=== PATIENT | female | born 1990 | race Caucasian/White ===

== ENCOUNTER 2020-10-01 06:49 | Inpatient (IN) | payer BC ==
[~2020-10-01 06:49] MED LIST: Bupivacaine 0.25% 10 ML SDV ONE
[2020-10-01] MEDS ORDERED: Lidocaine 1% 50 ML MDV INJECT PRN (07:01)
[2020-10-01] MEDS ORDERED: Sodium Chloride 0.9% 10 ML Syringe FLUSH PRN (07:01)
[2020-10-01] MEDS ORDERED: Nalbuphine 10 MG/1 ML Vial IVPUSH PRN (07:01)
[2020-10-01] MEDS ORDERED: Oxytocin/Lactated Ringers 10 UNIT/1,000 ML BAG IV SCH ×2 (07:15)
--- NOTE | 2020-10-01 08:18 | PCM.LDHP ---
L&D History of Present Illness - General Date of Service: 10/01/20 Admit Problem/Dx: Patient Status Order with Admit Dx/Problem 10/01/20 07:01 Patient Status [ADT] Routine Admission Diagnosis/Problem Admission Diagnosis/Problem Source of Information: Patient History Limitations: Reports: No Limitations - History of Present Illness Introduction:: 30 year old at 39w by LMP c/w second trimester ultrasound here for induction of labor. PNC with myself without complications starting at 10 weeks. - Related Data Allergies/Adverse Reactions: Allergies Allergy/AdvReac Type Severity Reaction Status Date / Time Penicillins AdvReac Stomach Verified 09/24/20 11:53 Upset Home Medications: Home Meds Vits #93/Iron Fum/FA [ Formula Tablet] 1 each PO DAILY 09/24/20 [History] Past Medical History - Past Health History Medical/Surgical History: Denies Medical/Surgical History H&P Review of Systems - Review of Systems: Review Of Systems: See Below General: Reports: No Symptoms HEENT: Reports: No Symptoms Pulmonary: Reports: No Symptoms Cardiovascular: Reports: No Symptoms Gastrointestinal: Reports: No Symptoms Genitourinary: Reports: No Symptoms Musculoskeletal: Reports: No Symptoms Skin: Reports: No Symptoms Psychiatric: Reports: No Symptoms Neurological: Reports: No Symptoms Hematologic/Lymphatic: Reports: No Symptoms Immunologic: Reports: No Symptoms L&D Exam - Exam Exam: See Below - Vital Signs Weight: 68.946 kg - OB Specific Contraction Intensity: Moderate - Domingo Score Domingo Score Cervix Position: Posterior Domingo Score Consistency: Soft Domingo Score Effacement: 51-70% Domingo Score Dilation: 3-4 cm Domingo Score 's Station: -1 ,0 Domingo Score Total: 8 - Exam General: Alert, Oriented HEENT: PERRLA, Conjunctiva Clear, EACs Clear, EOMI, Hearing Intact, Mucosa Moist & [place], Nares Patent, Normal Nasal Septum, Posterior Pharynx Clear, TMs Clear Neck: Supple, Trachea Midline Lungs: Clear to Auscultation, Normal Respiratory Effort GI/Abdominal Exam: Normal Bowel Sounds, Soft, Non-Tender, No Organomegaly Rectal Exam: Normal Exam Genitourinary: Normal external exam Back Exam: Normal Inspection Extremities: Normal Inspection, Normal Range of Motion, Non-Tender, No Pedal Edema, Normal Capillary Refill Skin: Warm Neurological: Cranial Nerves Intact, Reflexes Equal Bilateral Psychiatric: Alert, Normal Affect, Normal Mood - Patient Data Lab Results Last 24 hrs: Laboratory Results - last 24 hr 10/01/20 Range/Units 07:35 WBC 10.74 H (3.98-10.04) K/mm3 RBC 4.44 (3.98-5.22) M/mm3 Hgb 13.5 (11.2-15.7) gm/dl Hct 39.1 (34.1-44.9) % MCV 88.1 (79.4-94.8) fl MCH 30.4 (25.6-32.2) pg MCHC 34.5 (32.2-35.5) g/dl RDW Std Deviation 41.2 (36.4-46.3) fL Plt Count 200 (182-369) K/mm3 MPV 9.9 (9.4-12.3) fl Neut % (Auto) 71.1 (34.0-71.1) % Lymph % (Auto) 19.7 (19.3-51.7) % [place] % (Auto) 7.8 (4.7-12.5) % Eos % (Auto) 0.5 L (0.7-5.8) Baso % (Auto) 0.2 (0.1-1.2) % Neut # (Auto) 7.64 H (1.56-6.13) K/mm3 Lymph # (Auto) 2.12 (1.18-3.74) K/mm3 [place] # (Auto) 0.84 H (0.24-0.36) K/mm3 Eos # (Auto) 0.05 (0.04-0.36) K/mm3 Baso # (Auto) 0.02 (0.01-0.08) K/mm3 Result Diagrams: 10/01/20 07:35 Problem List Initiated/Reviewed/Updated: Yes Orders Last 24hrs: Active Orders 24 hr Category Date Time Status Patient Status [ADT] Routine ADT 10/01/20 07:01 Active Activity as Tolerated [RC] PFP Care 10/01/20 07:01 Active Communication Order [RC] ASDIRECTED Care 10/01/20 07:01 Active Heart Tones [RC] ASDIRECTED Care 10/01/20 07:01 Active Non Stress Test [RC] PER UNIT ROUTINE Care 10/01/20 07:01 Active Notify Provider [RC] PFP Care 10/01/20 07:01 Active Notify Provider [RC] PRN Care 10/01/20 07:01 Active Peripheral IV Care [RC] . DIRECTED Care 10/01/20 07:01 Active Urinary Catheter Assessment [RC] ASDIRECTED Care 10/01/20 07:01 Active Vital Signs [RC] PER UNIT ROUTINE Care 10/01/20 07:01 Active Regular Diet [DIET] Diet 10/01/20 Breakfast Active BLOOD BANK HOLD SPECIMEN [BBK] Routine Lab 10/01/20 07:01 Ordered CORONAVIRUS COVID-19 GERMAN [MOLEC] Stat Lab 10/01/20 07:30 Received RAPID PLASMA REAGIN,RPR [CHEM] Routine Lab 10/01/20 07:35 Received Lactated Ringers [Ringers, Lactated] 1,000 ml Med 10/01/20 07:15 Active IV ASDIRECTED Lidocaine 1% [Xylocaine 1%] Med 10/01/20 07:01 Active 50 ml INJECT ONETIME PRN Nalbuphine [Nubain] Med 10/01/20 07:01 Active 10 mg IVPUSH Q2H PRN Oxytocin/Lactated Ringers [Pitocin in LR 10 Units/1,000 Med 10/01/20 07:15 Active ML] 10 unit in 1,000 ml IV .CONTINUOUS Oxytocin/Lactated Ringers [Pitocin in LR 10 Units/1,000 Med 10/01/20 07:15 Active ML] 10 unit in 1,000 ml IV TITRATE Sodium Chloride 0.9% [Saline Flush] Med 10/01/20 07:01 Active 10 ml FLUSH ASDIRECTED PRN Electronic Heart Tones Ext w TOCO [WOMSER] Oth 10/01/20 07:01 Ordered Routine Electronic Heart Tones Internal [WOMSER] Per Unit Oth 10/01/20 07:01 Ordered Routine Peripheral IV Insertion Adult [OM.PC] Routine Oth 10/01/20 07:01 Ordered Resuscitation Status Routine Resus Stat 10/01/20 07:01 Ordered Medication Orders Oxytocin/Lactated Ringer's (Pitocin In Lr 10 Units/1,000 Ml) 10 unit in 1,000 mls @ 12 mls/hr IV TITRATE LUÍS; Protocol Oxytocin/Lactated Ringer's (Pitocin In Lr 10 Units/1,000 Ml) 10 unit in 1,000 mls @ 500 mls/hr IV .CONTINUOUS LUÍS Lactated Ringer's (Ringers, Lactated) 1,000 mls @ 100 mls/hr IV ASDIRECTED LUÍS Lidocaine HCl (Xylocaine 1%) 50 ml INJECT ONETIME PRN PRN Reason: Breakthrough Pain Nalbuphine HCl (Nubain) 10 mg IVPUSH Q2H PRN PRN Reason: Pain Sodium Chloride (Saline Flush) 10 ml FLUSH ASDIRECTED PRN PRN Reason: Keep Vein Open Assessment/Plan Comment:: 30 year old here for induction of labor. O positive, rubella immune, gbs negative. AROM clear fluid. Pitocin if needed in an hour or so. Anticipate unless otherwise indicated.
--- NOTE | 2020-10-01 09:07 | PCM.PREANE ---
Preanesthetic Assessment - Procedure Proposed Procedure: VLADIMIR- PATIENT IS STILL DECIDING IF SHE WANTS ONE - Anesthesia/Transfusion/Family Hx Anesthesia History: Prior Anesthesia Without Reaction Family History of Anesthesia Reaction: No Transfusion History: No Prior Transfusion(s) - Review of Systems General: No Symptoms Pulmonary: No Symptoms Cardiovascular: No Symptoms Gastrointestinal: No Symptoms Neurological: No Symptoms Other: Reports: None - Physical Assessment Vital Signs: Last Vital Signs Temp 97.6 F 10/01/20 07:01 Pulse 74 10/01/20 08:04 Resp 16 10/01/20 07:01 BP 127/79 10/01/20 07:30 Pulse Ox Height: 5 ft 5 in Weight: 68.946 kg ASA Class: 2 Mental Status: Alert & Oriented x3 Airway Class: Mallampati = 1 Dentition: Reports: Normal Dentition Thyro-Mental Finger Breadths: 3 Mouth Opening Finger Breadths: 3 ROM/Head Extension: Full Lungs: Clear to Auscultation, Normal Respiratory Effort Cardiovascular: Regular Rate, Regular Rhythm, No Murmurs - Lab Values: Laboratory Last Values WBC 10.74 K/mm3 (3.98-10.04) H 10/01/20 07:35 RBC 4.44 M/mm3 (3.98-5.22) 10/01/20 07:35 Hgb 13.5 gm/dl (11.2-15.7) 10/01/20 07:35 Hct 39.1 % (34.1-44.9) 10/01/20 07:35 MCV 88.1 fl (79.4-94.8) 10/01/20 07:35 MCH 30.4 pg (25.6-32.2) 10/01/20 07:35 MCHC 34.5 g/dl (32.2-35.5) 10/01/20 07:35 RDW Std Deviation 41.2 fL (36.4-46.3) 10/01/20 07:35 Plt Count 200 K/mm3 (182-369) 10/01/20 07:35 MPV 9.9 fl (9.4-12.3) 10/01/20 07:35 Neut % (Auto) 71.1 % (34.0-71.1) 10/01/20 07:35 Lymph % (Auto) 19.7 % (19.3-51.7) 10/01/20 07:35 [place] % (Auto) 7.8 % (4.7-12.5) 10/01/20 07:35 Eos % (Auto) 0.5 (0.7-5.8) L 10/01/20 07:35 Baso % (Auto) 0.2 % (0.1-1.2) 10/01/20 07:35 Neut # (Auto) 7.64 K/mm3 (1.56-6.13) H 10/01/20 07:35 Lymph # (Auto) 2.12 K/mm3 (1.18-3.74) 10/01/20 07:35 [place] # (Auto) 0.84 K/mm3 (0.24-0.36) H 10/01/20 07:35 Eos # (Auto) 0.05 K/mm3 (0.04-0.36) 10/01/20 07:35 Baso # (Auto) 0.02 K/mm3 (0.01-0.08) 10/01/20 07:35 SARS-CoV-2 RNA (GERMAN) Negative (NEGATIVE) 10/01/20 07:30 - Allergies Allergies/Adverse Reactions: Allergies Allergy/AdvReac Type Severity Reaction Status Date / Time Penicillins AdvReac Stomach Verified 09/24/20 11:53 Upset - Blood Blood Available: No - Acknowledgements Anesthesia Type Planned: Epidural Pt an Appropriate Candidate for the Planned Anesthesia: Yes Alternatives and Risks of Anesthesia Discussed w Pt/Guardian: Yes Pt/Guardian Understands and Agrees with Anesthesia Plan: Yes PreAnesthesia Questionnaire - Past Health History Medical/Surgical History: Denies Medical/Surgical History Cardiovascular History: Reports: None Respiratory History: Reports: None Gastrointestinal History: Reports: GERD (rare with preg) : 1 Para: 0 Oncologic (Cancer) History: Reports: None - Past Surgical History HEENT Surgical History: Reports: Oral Surgery Musculoskeletal Surgical History: Reports: Arthroscopic Knee (acl) - SUBSTANCE USE Tobacco Use Status *Q: Never Tobacco User Tobacco Use Within Last Twelve Months: No Second Hand Smoke Exposure: No Days Per Week of Alcohol Use: 0 Recreational Drug Use History: No - HOME MEDS Home Medications: Home Meds Vits #93/Iron Fum/FA [ Formula Tablet] 1 each PO DAILY 02/02/21 [History] - CURRENT (IN HOUSE) MEDS Current Meds: Current Medications Oxytocin/Lactated Ringer's (Pitocin In Lr 10 Units/1,000 Ml) 10 unit in 1,000 mls @ 12 mls/hr IV TITRATE LUÍS; Protocol Oxytocin/Lactated Ringer's (Pitocin In Lr 10 Units/1,000 Ml) 10 unit in 1,000 mls @ 500 mls/hr IV .CONTINUOUS LUÍS Lactated Ringer's (Ringers, Lactated) 1,000 mls @ 100 mls/hr IV ASDIRECTED LUÍS Lidocaine HCl (Xylocaine 1%) 50 ml INJECT ONETIME PRN PRN Reason: Breakthrough Pain Nalbuphine HCl (Nubain) 10 mg IVPUSH Q2H PRN PRN Reason: Pain Sodium Chloride (Saline Flush) 10 ml FLUSH ASDIRECTED PRN PRN Reason: Keep Vein Open
[2020-10-01] MEDS: Lactated Ringers 1,000 ML IV SCH ×2 (14:45→15:48)
[2020-10-01] MEDS ORDERED: fentaNYL 100 MCG/2 ML SDV EPIDUR PRN (15:04)
[2020-10-01] MEDS ORDERED: ePHEDrine 50 MG/ML SDV IVPUSH PRN (15:04)
[2020-10-01] MEDS ORDERED: Bupivacaine/fentaNYL/NS 100 ML Bag EPIDUR PRN (15:04)
[2020-10-01] MEDS ORDERED: diphenhydrAMINE 50 MG/ML SDV IVPUSH PRN (15:04)
--- NOTE | 2020-10-01 16:27 | PCM.PNLD ---
Labor Progress Note - VS & Meds Vital Signs: Last Vital Signs Temp 36.4 C 10/01/20 07:01 Pulse 74 10/01/20 08:04 Resp 16 10/01/20 07:01 BP 127/79 10/01/20 07:30 Pulse Ox Active Medications: Current Medications Diphenhydramine HCl (Benadryl) 25 mg IVPUSH Q6H PRN PRN Reason: pruritis Ephedrine Sulfate (Ephedrine Sulfate) 5 mg IVPUSH ASDIRECTED PRN PRN Reason: Hypotension Fentanyl (Sublimaze) 100 mcg EPIDUR Q3H PRN PRN Reason: Pain Last Admin: 10/01/20 15:13 Dose: 100 mcg Documented by: Fentanyl/Bupivacaine HCl (Fentanyl/Bupivacaine/Ns 2 Mcg-0.125% 100 Ml) 100 ml EPIDUR ASDIRECTED PRN PRN Reason: Pain Last Admin: 10/01/20 15:13 Dose: 100 ml Documented by: Oxytocin/Lactated Ringer's (Pitocin In Lr 10 Units/1,000 Ml) 10 unit in 1,000 mls @ 12 mls/hr IV TITRATE LUÍS; Protocol Oxytocin/Lactated Ringer's (Pitocin In Lr 10 Units/1,000 Ml) 10 unit in 1,000 mls @ 500 mls/hr IV .CONTINUOUS LUÍS Lactated Ringer's (Ringers, Lactated) 1,000 mls @ 100 mls/hr IV ASDIRECTED LUÍS Last Admin: 10/01/20 14:45 Dose: 999 mls/hr Documented by: Lidocaine HCl (Xylocaine 1%) 50 ml INJECT ONETIME PRN PRN Reason: Breakthrough Pain Nalbuphine HCl (Nubain) 10 mg IVPUSH Q2H PRN PRN Reason: Pain Sodium Chloride (Saline Flush) 10 ml FLUSH ASDIRECTED PRN PRN Reason: Keep Vein Open - Uterine Contractions Contraction Intensity: Moderate - Monitoring Accelerations: Present, 15x15 - Vaginal Exam Dilation (cm): 5 Station: 0 - Labor Progress (Free Text) Labor Progress: Progressing well. No complaints.
--- NOTE | 2020-10-01 16:28 | PCM.SN.2 ---
- Free Text/Narrative Note: Progressing well Epidural in 80/-2
--- NOTE | 2020-10-01 23:38 | PCM.SN.2 ---
- Free Text/Narrative Note: Stage I - Patient presented for induction of labor. AROM clear fluid. Painful contractions began shortly after. Eventually requested epidural for anesthesia. Pitocin then initiated. Progressed to complete with overall reassuring heart tones. Stage II - of viable male, weight 3200g, APGARS 8/9 at 2306. During pushing fetus began having deep variable decelerations to the 70-80. Returned to baseline. Given patient had been pushing over an hour and delivery was not eminent consent for vacuum obtained. Kiwi vacuum applied with fetus at +4/5 station. Over 3 contractions with vacuum use and contractions in between with only maternal effort delivery was achieved without difficulty. After delivery of head body and shoulders followed atraumatically. Positive cry. Placed on maternal abdomen. Pitocin initiated. Cord clamped and cut at one minute of life. Cord blood collected. Stage III - Spontaneous delivery of intact placenta. 3v cord. 2nd degree laceration and bilateral labial lacerations repaired with 3-0 vicryl. EBL 300.
[2020-10-02] MEDS: Benzocaine/Menthol 20%-0.5% Spray 56 GM Canister TOP PRN (00:57)
[2020-10-02] MEDS: Witch Hazel Medicated Pads 40/Jar TOP PRN (00:57)
[2020-10-02] MEDS ORDERED: Ammonia Inhalant Amp ONE (02:01)
[2020-10-02] MEDS: Ibuprofen 600 MG Tab PO PRN ×2 (05:57→21:44)
--- NOTE | 2020-10-02 07:57 | PCM48HPAN ---
Post Anesthesia Note - EVALUATION WITHIN 48HRS OF ANESTHETIC Vital Signs in Normal Range: Yes Patient Participated in Evaluation: Yes Respiratory Function Stable: Yes Airway Patent: Yes Cardiovascular Function Stable: Yes Hydration Status Stable: Yes Pain Control Satisfactory: Yes Nausea and Vomiting Control Satisfactory: Yes Mental Status Recovered: Yes Vital Signs: Last Vital Signs Temp 36.7 C 10/02/20 02:07 Pulse 69 10/02/20 02:07 Resp 14 10/02/20 02:07 BP 110/67 10/02/20 02:07 Pulse Ox 96 10/02/20 02:07 - COMMENTS/OBSERVATIONS Free Text/Narrative:: no anesthesia complications noted
[2020-10-02] MEDS: Docusate Sodium 100 MG Cap PO PRN ×2 (09:20→21:44)
[2020-10-02] MEDS: Acetaminophen 325 MG Tab PO PRN ×2 (09:21→18:00)
--- NOTE | 2020-10-02 10:33 | PCM.SN.2 ---
- Free Text/Narrative Note: Post Progress Note PPD #1 Subjective: Doing well overall. Ambulating minimally and had some difficulty with ongoing numbness in her legs following epidural for anesthesia. She feels like the numbness and weakness in her legs is improving this morning. Lochia minimal overnight. Voiding without difficulty. Tolerating regular diet without nausea or vomiting. Pain controlled with oral medications. Breast-feeding with some difficulty and is planning to work with the provider contracting consultant in the office today. Objective: Vitals: Vital Signs - 12 hr 10/01/20 10/02/20 10/02/20 23:30 00:01 00:30 Temperature Pulse, 82 87 76 Peripheral Respiratory Rate Blood Pressure 104/57 L 82/69 L 103/57 L O2 Sat by Pulse Oximetry 10/02/20 10/02/20 10/02/20 01:00 01:30 02:07 Temperature 36.7 C Pulse, 90 75 69 Peripheral Respiratory 14 Rate Blood Pressure 103/57 L 96/49 L 110/67 O2 Sat by Pulse 96 Oximetry Physical Exam General: Alert and oriented, no acute distress Lungs: Clear to auscultation bilaterally Heart: Regular rate and rhythm Abdomen: Soft, minimal appropriate tenderness, non-distended, fundus midline, nontender, and 1 fingerbreadth below the umbilicus Extremities: No edema Laboratory Results - last 24 hr 10/01/20 10/02/20 Range/Units 07:35 04:48 RPR Non-reactive (NONREACTIVE) Blood Type O NEGATIVE Gel Antibody Screen Positive Screen 1 ros/5 flds - neg RhIG Candidate? Yes Rhogam Indicated Yes, baby rh pos H ASSESSMENT: 30-year-old female -0-0-1 s/p vacuum extractor vaginal delivery PPD #1 complicated by Rh- status and with Rh+ blood type PLAN: Doing well Breast-feeding with minimal difficulty. Assist as needed Lochia minimal. Continue to monitor for appropriate lochia. Continue routine care Mom with O- blood type and infant with with O+ blood type. Patient to receive RhoGam prior to discharge. Anticipate discharge home tomorrow due to late timing of delivery at approximately 2300 hrs. on 10/01/2020 Kanu Carrizales MD 10:32 AM 10/02/2020
[2020-10-03] MEDS: Ibuprofen 600 MG Tab PO PRN (08:28)
[2020-10-03] MEDS: Docusate Sodium 100 MG Cap PO PRN (08:28)
--- NOTE | 2020-10-03 08:38 | PCM.SN.2 ---
- Free Text/Narrative Note: Post Progress Note PPD #2 Subjective: Doing well overall. Ambulating without difficulty throughout the day. Lochia minimal and decreasing since yesterday. Reports that she is only passing small clots when she is breast-feeding . Voiding without difficulty. Reports that she is passing flatus but has not had a bowel movement. She feels like she does have some rectal pressure like she has to have a bowel movement. She has been using Colace for stool softeners. Tolerating regular diet without nausea or vomiting. Pain controlled with oral medications. Continues to be breast- feeding with some difficulty and is planning to work with the it infrastructure consultant in the office today. Objective: Vitals: Vital Signs - 24 hr 10/02/20 10/02/20 10/03/20 15:00 20:46 02:59 Temperature 36.6 C 36.6 C 36.3 C Pulse, 77 78 63 Peripheral Respiratory 15 16 16 Rate Blood Pressure 96/65 107/59 L 91/70 O2 Sat by Pulse 97 100 99 Oximetry Physical Exam General: Alert and oriented, no acute distress Lungs: Clear to auscultation bilaterally Heart: Regular rate and rhythm Abdomen: Soft, minimal appropriate tenderness, non-distended, fundus midline, nontender, and 2 fingerbreadths below the umbilicus Extremities: No edema, no calf tenderness bilaterally Laboratory Results - last 24 hr 10/02/20 Range/Units 04:48 Blood Type O NEGATIVE Gel Antibody Screen Positive Screen 1 ros/5 flds - neg RhIG Candidate? Yes Rhogam Indicated Yes, baby rh pos H ASSESSMENT: 30-year-old female -0-0-1 s/p vacuum extractor vaginal delivery PPD #2 complicated by Rh- status and with Rh+ blood type PLAN: Doing well Breast-feeding with minimal difficulty. Assist as needed Lochia minimal. Continue to monitor for appropriate lochia. Continue routine care Mom with O- blood type and with with O+ blood type. Patient given RhoGam on PPD #1 Discharge home today Kanu Carrizales MD 8:35 AM 10/03/2020
[2020-10-03] MEDS: Witch Hazel Medicated Pads 40/Jar TOP PRN (08:41)
[2020-10-03] MEDS: Benzocaine/Menthol 20%-0.5% Spray 56 GM Canister TOP PRN (08:41)
--- NOTE | 2020-10-03 08:59 | PCM.DCSUM1 ---
Discharge Summary - Hospital Course Free Text/Narrative:: Stage I - Patient presented for induction of labor. AROM clear fluid. Painful contractions began shortly after. Eventually requested epidural for anesthesia. Pitocin then initiated. Progressed to complete with overall reassuring heart tones. Stage II - of viable male, weight 3200g, APGARS 8/9 at 2306. During pushing fetus began having deep variable decelerations to the 70-80. Returned to baseline. Given patient had been pushing over an hour and delivery was not eminent consent for vacuum obtained. Kiwi vacuum applied with fetus at +4/5 station. Over 3 contractions with vacuum use and contractions in between with only maternal effort delivery was achieved without difficulty. After delivery of head body and shoulders followed atraumatically. Positive cry. Placed on maternal abdomen. Pitocin initiated. Cord clamped and cut at one minute of life. Cord blood collected. Stage III - Spontaneous delivery of intact placenta. 3v cord. 2nd degree laceration and bilateral labial lacerations repaired with 3-0 vicryl. EBL 300. Diagnosis: Stroke: No - Discharge Data Discharge Date: 10/03/20 Discharge Disposition: Home, Self-Care 01 Condition: Good - Referral to Home Health Primary Care Physician: Beverley Cook MD - Discharge Diagnosis/Problem(s) (1) 39 weeks gestation of SNOMED Code(s): 41129854 ICD Code: Z3A.39 - 39 WEEKS GESTATION OF Status: Acute Current Visit: Yes (2) Rh negative status during SNOMED Code(s): 391625854 ICD Code: O26.899 - OTH RELATED CONDITIONS, UNSPECIFIED TRIMESTER; Z67.91 - UNSPECIFIED BLOOD TYPE, RH NEGATIVE Status: Acute Current Visit: Yes (3) Vaginal delivery SNOMED Code(s): 464978057 ICD Code: O80 - ENCOUNTER FOR FULL-TERM UNCOMPLICATED DELIVERY Status: Acute Current Visit: Yes (4) Second degree perineal laceration during delivery SNOMED Code(s): 6841220 ICD Code: O70.1 - SECOND DEGREE PERINEAL LACERATION DURING DELIVERY Status: Acute Current Visit: Yes (5) Vacuum extractor delivery, delivered SNOMED Code(s): 482739097 ICD Code: O66.5 - ATTEMPTED APPLICATION OF VACUUM EXTRACTOR AND FORCEPS Status: Acute Current Visit: Yes - Patient Summary/Data Complications: None Consults: None Hospital Course: Ela Jara was admitted for elective induction of labor. On admission her cervix was dilated to 3-4 cm. She was GBS negative. She had artificial rupture of membranes with clear fluid. She was given an epidural for anesthesia. She was given pitocin for augmentation. She progressed to complete and began pushing. On 10/01/2020 she had a vacuum-assisted vaginal delivery of a live male at 23:06. Apgars of 8 and 9. Weight of 3200 g. Her course was uneventful. Her pain was well controlled and she had minimal lochia. She was ambulating, tolerating a regular diet and voiding normally. She was breast- feeding with minimal difficulty. She was afebrile and her hematocrit was 39.1 on admission. She desired to be discharged home on the morning of PPD #2. Her blood type is O- and infant had O+ blood type. She received RhoGam on PPD #1. - Patient Instructions Diet: Regular Diet as Tolerated Activity: Apply Ice, As Tolerated, No Strenuous Activities Activity, Other: Nothing in the vagina for 6 weeks Driving: May Drive Today Showering/Bathing: May Shower Notify Provider of: Fever, Increased Pain, Swelling and Redness, Drainage, Nausea and/or Vomiting Other/Special Instructions: Please contact your physician's office if you have heavy vaginal bleeding enough to soak a pad in less than an hour for several hours. Monitor for any signs of an infection in the breasts with severe pain or redness of the breast. - Discharge Plan *PRESCRIPTION DRUG MONITORING PROGRAM REVIEWED*: No *COPY OF PRESCRIPTION DRUG MONITORING REPORT IN PATIENT SOHAIL: No Home Medications: Home Meds Vits #93/Iron Fum/FA [ Formula Tablet] 1 each PO DAILY 09/24/20 [History] Acetaminophen [Tylenol] 650 mg PO Q4H PRN tablet 10/03/20 [Rx] Benzocaine/Menthol [Dermoplast Pain Relief Neches] 1 spray TOP ASDIRECTED PRN canister 10/03/20 [Rx] Docusate Sodium [Colace] 100 mg PO BID PRN cap 10/03/20 [Rx] Ibuprofen [Motrin] 600 mg PO Q6H PRN tablet 10/03/20 [Rx] malissa López [Tucks] 1 pad TOP ASDIRECTED PRN pad 10/03/20 [Rx] Patient Handouts: Care of a Perineal Tear, Care After Vaginal Delivery Referrals: Beverley Cook MD [Primary Care Provider] - (Follow-up for routine visit in 2 weeks or earlier as needed.) - Discharge Summary/Plan Comment DC Time >30 min.: No - Patient Data Vitals - Most Recent: Last Vital Signs Temp 36.3 C 10/03/20 02:59 Pulse 63 10/03/20 02:59 Resp 16 10/03/20 02:59 BP 91/70 10/03/20 02:59 Pulse Ox 99 10/03/20 02:59 Weight - Most Recent: 68.946 kg I&O - Last 24 hours: Intake & Output 10/02/20 10/03/20 10/03/20 22:59 06:59 14:59 Intake Total 302 Balance 302 Lab Results - Last 24 hrs: Laboratory Results - last 24 hr 10/02/20 Range/Units 04:48 Blood Type O NEGATIVE Gel Antibody Screen Positive Screen 1 ros/5 flds - neg RhIG Candidate? Yes Rhogam Indicated Yes, baby rh pos H Med Orders - Current: Current Medications Acetaminophen (Tylenol) 650 mg PO Q4H PRN PRN Reason: mild pain or fever Last Admin: 10/02/20 18:00 Dose: 650 mg Documented by: Benzocaine/Menthol (Dermoplast Pain Relief Neches) 0 gm TOP ASDIRECTED PRN PRN Reason: Perineal Comfort Measure Last Admin: 10/03/20 08:41 Dose: 1 can Documented by: Docusate Sodium (Colace) 100 mg PO BID PRN PRN Reason: Constipation Last Admin: 10/03/20 08:28 Dose: 100 mg Documented by: Ibuprofen (Motrin) 600 mg PO Q6H PRN PRN Reason: Mild pain or fever Last Admin: 10/03/20 08:28 Dose: 600 mg Documented by: Malissa López (Braxton) 1 pad TOP ASDIRECTED PRN PRN Reason: Pain Last Admin: 10/03/20 08:41 Dose: 1 container Documented by: Discontinued Medications Ammonia (Aromatic Spirit) (Ammonia Aromatic Inhalant) Confirm Administered Dose 1 ampule .ROUTE .STK-MED ONE Stop: 10/02/20 02:02 Last Admin: 10/02/20 02:40 Dose: Not Given Documented by: Bupivacaine HCl (Sensorcaine-Mpf 0.25%) 10 ml .ROUTE .[facility] ONE Stop: 10/01/20 00:01 Diphenhydramine HCl (Benadryl) 25 mg IVPUSH Q6H PRN PRN Reason: pruritis Ephedrine Sulfate (Ephedrine Sulfate) 5 mg IVPUSH ASDIRECTED PRN PRN Reason: Hypotension Fentanyl (Sublimaze) 100 mcg EPIDUR Q3H PRN PRN Reason: Pain Last Admin: 10/01/20 15:13 Dose: 100 mcg Documented by: Fentanyl/Bupivacaine HCl (Fentanyl/Bupivacaine/Ns 2 Mcg-0.125% 100 Ml) 100 ml EPIDUR ASDIRECTED PRN PRN Reason: Pain Last Admin: 10/01/20 15:13 Dose: 100 ml Documented by: Oxytocin/Lactated Ringer's (Pitocin In Lr 10 Units/1,000 Ml) 10 unit in 1,000 mls @ 12 mls/hr IV TITRATE LUÍS; Protocol Last Titration: 10/01/20 23:06 Dose: 500 munits/min, 3,000 mls/hr Documented by: Oxytocin/Lactated Ringer's (Pitocin In Lr 10 Units/1,000 Ml) 10 unit in 1,000 mls @ 500 mls/hr IV .CONTINUOUS LUÍS Lactated Ringer's (Ringers, Lactated) 1,000 mls @ 100 mls/hr IV ASDIRECTED LUÍS Last Infusion: 10/01/20 16:28 Dose: 100 mls/hr Documented by: Lidocaine HCl (Xylocaine 1%) 50 ml INJECT ONETIME PRN PRN Reason: Breakthrough Pain Nalbuphine HCl (Nubain) 10 mg IVPUSH Q2H PRN PRN Reason: Pain Sodium Chloride (Saline Flush) 10 ml FLUSH ASDIRECTED PRN PRN Reason: Keep Vein Open
== END 2020-10-03 12:31 | disposition home or self-care (01) | DRG 560 ==
LOC: JD.OB 06:49 → OBSVTOIN 23:06 → JD.OB 23:06
PROVIDERS: ADMIT Obstetrics & Gynecology; ATTEND Obstetrics & Gynecology
PROC: 10D07Z6 Extraction of Products of Conception, Vacuum, Via Natural or Artificial Opening (ICD-10-PCS; principal; 2020-10-01)
PROC: 10907ZC Drainage of Amniotic Fluid, Therapeutic from Products of Conception, Via Natural or Artificial Opening (ICD-10-PCS; 2020-10-01)
PROC: 0KQM0ZZ Repair Perineum Muscle, Open Approach (ICD-10-PCS; 2020-10-01)
PROC: 3E033VJ Introduction of Other Hormone into Peripheral Vein, Percutaneous Approach (ICD-10-PCS; 2020-10-01)
PROC: 3E0R3BZ Introduction of Anesthetic Agent into Spinal Canal, Percutaneous Approach (ICD-10-PCS; 2020-10-01)
PROC: 00HU33Z Insertion of Infusion Device into Spinal Canal, Percutaneous Approach (ICD-10-PCS; 2020-10-01)
PROC: 3E0334Z Introduction of Serum, Toxoid and Vaccine into Peripheral Vein, Percutaneous Approach (ICD-10-PCS; 2020-10-02)
DX: O26.893 Other specified pregnancy related conditions, third trimester (principal); O70.1 Second degree perineal laceration during delivery; O66.5 Attempted application of vacuum extractor and forceps; Z37.0 Single live birth; Z20.822 Contact with and (suspected) exposure to COVID-19; Z3A.39 39 weeks gestation of pregnancy; Z67.41 Type O blood, Rh negative
CPT/HCPCS: 01967; 36415; 51701; 51702; 59025; 59409; 85025; 85461; 86592; 86850; 86870; 86900; 86901; A9270-GY; J2590; J2790; J3010; J3490; J7120; U0002

== ENCOUNTER 2023-07-09 07:00 | Inpatient (IN) | payer BC ==
[2023-07-09] MEDS ORDERED: Ondansetron 4 MG/2 ML SDV IVPUSH PRN (07:31)
[2023-07-09] MEDS ORDERED: Lidocaine 1% 50 ML MDV INJECT PRN (07:31)
[2023-07-09] MEDS ORDERED: Nalbuphine HCl 10 MG/ 1ML Amp IVPUSH PRN (07:31)
[2023-07-09] MEDS ORDERED: Oxytocin/Lactated Ringers 30 UNIT/500 ML BAG IV SCH ×2 (07:45)
[2023-07-09] MEDS: Lactated Ringers 1,000 ML IV SCH ×3 (07:56→14:34)
[2023-07-09 07:59] LABS: BASOPHILS PERCENT AUTO 0.2 % (0.0-1.0); EOSINOPHILS ABSOLUTE AUTO 0.1 K/mm3 (0.0-0.4); EOSINOPHILS PERCENT AUTO 0.6 % (0.0-6.0); HEMATOCRIT 34.1 % (37.0-47.0); HEMOGLOBIN 11.5 gm/dl (12.0-16.0); IMMATURE GRAN ABSOLUTE AUTO 0.07 K/mm3 (0.00-0.05); IMMATURE GRAN PERCENT AUTO 0.9 % (0.0-0.4); LYMPHOCYTES ABSOLUTE AUTO 2.1 K/mm3 (1.0-4.8); LYMPHOCYTES PERCENT AUTO 25.9 % (24.0-44.0); MEAN CORPUSCULAR HEMOGLOBIN 29.1 pg (28.0-32.0); MEAN CORPUSCULAR HGB CONC 33.7 g/dl (32.0-36.0); MEAN CORPUSCULAR VOLUME 86.3 fl (83.0-99.0); MEAN PLATELET VOLUME 9.4 fl (9.4-12.3); MONOCYTES ABSOLUTE AUTO 0.6 K/mm3 (0.0-0.8); MONOCYTES PERCENT AUTO 6.8 % (0.0-8.0); NEUTROPHILS ABSOLUTE AUTO 5.4 K/mm3 (1.8-7.7); NEUTROPHILS PERCENT AUTO 65.6 % (41.0-71.0); PLATELET COUNT,PLT 245 K/mm3 (150-400); RED BLOOD CELL COUNT 3.95 M/mm3 (4.10-5.30); WHITE BLOOD CELL COUNT,WBC 8.22 K/mm3 (3.9-11.3)
[2023-07-09] MEDS ORDERED: ceFAZolin 2 GM in Sodium Chloride 0.9% 50 ML IV ONE (08:00)
[2023-07-09] MEDS ORDERED: diphenhydrAMINE 50 MG/ML SDV IVPUSH PRN (11:00)
[2023-07-09] MEDS ORDERED: fentaNYL 100 MCG/2 ML SDV EPIDUR PRN (11:00)
[2023-07-09] MEDS ORDERED: ePHEDrine 50 MG/ML SDV IVPUSH PRN (11:00)
[2023-07-09] MEDS ORDERED: Bupivacaine/fentaNYL/NS 100 ML Bag EPIDUR PRN (11:00)
[2023-07-09] MEDS ORDERED: ceFAZolin 1 GM in Sodium Chloride 0.9% 100 ML IV SCH (16:00)
[2023-07-09] MEDS ORDERED: Lidocaine 1% 10 ML MDV ONE (16:00)
[2023-07-09] MEDS ORDERED: Benzocaine/Menthol 20%-0.5% Spray 78 GM Cannister TOP PRN (17:11)
[2023-07-09] MEDS ORDERED: Acetaminophen 325 MG Tab PO PRN (17:11)
[2023-07-09] MEDS ORDERED: Witch Hazel Medicated Pads 40/Jar TOP PRN (17:11)
[2023-07-09] MEDS ORDERED: Ibuprofen 600 MG Tab PO PRN (17:11)
== END 2023-07-10 17:30 | disposition home or self-care (01) | DRG 560 ==
LOC: UNDOADMOB 07:00 → JD.OB 07:00 → OBSVTOIN 15:50 → JD.OB 15:51
PROVIDERS: ADMIT Obstetrics & Gynecology; ATTEND Obstetrics & Gynecology
PROC: 10E0XZZ Delivery of Products of Conception, External Approach (ICD-10-PCS; principal; 2023-07-09)
PROC: 10907ZC Drainage of Amniotic Fluid, Therapeutic from Products of Conception, Via Natural or Artificial Opening (ICD-10-PCS; 2023-07-09)
PROC: 3E033VJ Introduction of Other Hormone into Peripheral Vein, Percutaneous Approach (ICD-10-PCS; 2023-07-09)
PROC: 3E0R3BZ Introduction of Anesthetic Agent into Spinal Canal, Percutaneous Approach (ICD-10-PCS; 2023-07-09)
PROC: 00HU33Z Insertion of Infusion Device into Spinal Canal, Percutaneous Approach (ICD-10-PCS; 2023-07-09)
DX: O36.5930 Maternal care for other known or suspected poor fetal growth, third trimester, not applicable or unspecified (principal); O99.824 Streptococcus B carrier state complicating childbirth; Z37.0 Single live birth; Z3A.38 38 weeks gestation of pregnancy
CPT/HCPCS: 36415; 36430; 51701; 59025; 59409; 85025; 85461; 86592; 86850; 86870; 86900; 86901; A9270-GY; J0690; J2405; J2790; J3010; J3490; J7120; J7999